=== PATIENT | male | born 1945 | race Hispanic/Latino ===

== ENCOUNTER → 2019-08-27 | Outpatient (CLI) | payer MEDICARE ==
--- NOTE | 2019-08-27 15:46 | Diagnostic Imaging Report ---
CT of the chest, without contrast. History: Chronic bronchitis. Comparison: None available. Technique: Multidetector CT scanning of the chest was performed from the level of the apices to the upper abdomen without contrast. Coronal and sagittal multiplanar reformations were obtained. RADIATION DOSE: Total DLP: 561.38 mGy*cm Dose modulation, iterative reconstruction, and/or weight based adjustment of the mA/kV was utilized to reduce the radiation dose to as low as reasonably achievable. FINDINGS: The thyroid and remaining visualized structures within the base of the neck demonstrate no significant abnormalities. The thoracic aorta is normal course and caliber with atherosclerotic calcifications within its course and branch vessels including the coronary arteries. The heart is not enlarged. No abnormal pericardial fluid is present. There is no abnormal axillary, mediastinal, or hilar lymph node enlargement. The trachea and proximal airways are patent. Examination of the lungs demonstrates no evidence for consolidation, pneumothorax, mass, suspicious nodule, or pleural effusion. The visualized upper abdominal contents demonstrate no significant abnormalities. The osseous structures demonstrate no evidence for acute fracture or destructive process. The extrathoracic soft tissues are unremarkable. IMPRESSION: No acute intrathoracic abnormality identified. Signed by: Dr. Reza Alva MD on 08/27/2019 3:43 PM
== END ==
LOC: CT 07:47
PROVIDERS: ATTEND Internal Medicine
DX: J41.0 Simple chronic bronchitis (principal); Z72.0 Tobacco use
CPT/HCPCS: 71250